=== PATIENT | female | born 1975 | race African-American/Black ===

== ENCOUNTER 2023-06-29 21:35 | Emergency (ER) | payer OTHER ==
[~2023-06-29] VITALS: Ht 170.2 cm; Wt 79.5 kg
[2023-06-29] MEDS ORDERED: IBUP-1492 PO (23:09)
[2023-06-29] MEDS ORDERED: METH-812 PO (23:09)
[2023-06-29] MEDS ORDERED: KETOROLAC TROMETHAMINE 60 MG/2 ML VIAL IM ONE (23:15)
[2023-06-29 23:17] LABS: APPEARANCE,URINE HAZY (CLEAR); BILIRUBIN,URINE NEGATIVE (NEGATIVE); COLOR,URINE YELLOW (YELLOW); GLUCOSE, URINE (UA) NEGATIVE (NEGATIVE); KETONES,URINE TRACE mg/dL (NEGATIVE); LEUKOCYTE ESTERASE ,URINE LARGE (NEGATIVE); NITRATE,URINE NEGATIVE (NEGATIVE); OCCULT BLOOD,URINE NEGATIVE (NEGATIVE); PH,URINE 5.5 (5.0-8.0); PROTEIN,URINE TRACE mg/dL (NEGATIVE); SPECIFIC GRAVITIY, URINE 1.026 (1.003-1.030); UROBILINOGEN,URINE <=1.0 mg/dL (<=1.0)
[2023-06-29 23:26] VITALS: BP 118/63; PULSE 74; RESP 14; TEMP 98.3
[2023-06-29 23:31] LABS: BACTERIA,URINE Few /HPF (None Seen); HCG,QUAL URINE NEGATIVE (NEGATIVE); RBC,URINE 0-2 /HPF (0-2); SQUAMOUS EPITHELIAL CELL,UR Moderate /LPF (None Seen)
== END 2023-06-29 23:26 | disposition home or self-care (01) ==
LOC: EMS 21:35
DX: S46.919A Strain of unspecified muscle, fascia and tendon at shoulder and upper arm level, unspecified arm, initial encounter (principal); S13.4XXA Sprain of ligaments of cervical spine, initial encounter; F17.210 Nicotine dependence, cigarettes, uncomplicated; V89.2XXA Person injured in unspecified motor-vehicle accident, traffic, initial encounter; Y93.89 Activity, other specified; Y92.89 Other specified places as the place of occurrence of the external cause; Y99.8 Other external cause status
CPT/HCPCS: 99283; 81001; 84703; 87086; 87186; 87491; 87591; 96372; J1885